=== PATIENT | female | born 1945 | race Caucasian/White ===

== ENCOUNTER 2018-01-17 02:25 | Emergency (ER) | payer OTHER ==
[~2018-01-17] VITALS: Ht 157.5 cm; Wt 75.2 kg
[2018-01-17] VITALS (7 sets, daily range): BP systolic 93–136; BP diastolic 50–75; PULSE 65–78; RESP 16–17; TEMP 98.6; O2SAT 96–99
[2018-01-17] MEDS ORDERED: ANTIDEPRESSANT PO (02:42)
[2018-01-17] MEDS ORDERED: LEVO50TA4 PO (02:42)
[2018-01-17] MEDS ORDERED: CHOLESTEROL MED PO (02:42)
[2018-01-17] MEDS ORDERED: ASCO100029 PO (02:45)
[2018-01-17] MEDS ORDERED: VITA400C28 PO (02:45)
[2018-01-17] MEDS ORDERED: ASPI1TAB57 PO (02:45)
[2018-01-17] MEDS ORDERED: CYAN100 PO (02:45)
[2018-01-17] MEDS ORDERED: OMEG100010 PO (02:45)
--- NOTE | 2018-01-17 03:24 | PD ---
HPI Chief Complaint: Alcohol/Drug Intoxication Time Seen by Provider: 03:04 Travel History International Travel<30 days: No Contact w/Intl Traveler<30days: No Traveled to known affect area: No History of Present Illness HPI This is a 72-year-old female who drank multiple beers and had 3 margaritas to celebrate Mother's Day today when she started to tell her family she had chest discomfort and she slumped over to the side and went unconscious. Her family member pulled her to the floor and started doing CPR. The patient awoke. The patient does not remember any of this. She denies any chest pain currently but says she feels intoxicated. She has a history of hyperlipidemia but no diabetes , hypertension or prior heart disease. She does smoke. [facility] Past Medical History ?: Not Social History Alcohol Use: Yes Tobacco Use: Yes Substance Use: No Allergies-Medications (Allergen,Severity, Reaction): Coded Allergies: No Known Allergies (Unverified , 01/17/18) Reported Meds & Prescriptions Reported Meds & Active Scripts Active Reported North English 3 1000 mg (North English-3 Fatty Acids) 300 Mg-1,000 Mg Cap 300 Mg PO DAILY Vitamin B12 (Cyanocobalamin) 100 Mcg Tab 100 Mcg PO DAILY Vitamin C (Ascorbic Acid) 1,000 Mg Tablet.er 1,000 Mg PO DAILY Vitamin D (Cholecalciferol) 400 Unit Cap 400 Cap PO DAILY Aspirin 81 (Aspirin) 81 Mg Tabdr 81 Mg PO DAILY [Antidepressant] 1 Tab PO DAILY Levothyroxine (Levothyroxine Sodium) 50 Mcg Tab 50 Mcg PO DAILY [Cholesterol Med] 1 Tab PO HS Review of Systems Except as stated in HPI: all other systems reviewed are Neg Physical Exam Narrative GENERAL:Well appearing, no acute distress SKIN: Focused skin assessment warm and dry. HEAD: Atraumatic. Normocephalic. EYES: Pupils equal and round. No injection or drainage. ENT: Moist mucous membranes NECK: Trachea midline. CARDIOVASCULAR: Regular rate and rhythm. No murmur appreciated. RESPIRATORY: Clear to auscultation. Breath sounds equal bilaterally. GASTROINTESTINAL: Abdomen soft, non-tender, nondistended. MUSCULOSKELETAL: No obvious deformities. NEUROLOGICAL: Awake and alert. No obvious cranial nerve deficits. Slurred speech, poor coordination. PSYCHIATRIC: Appropriate mood and affect; insight and judgment normal. Data Data Last Documented VS Vital Signs Date Time Temp Pulse Resp B/P (MAP) Pulse Ox O2 Delivery O2 Flow Rate FiO2 01/17/18 04:40 78 16 103/68 (80) 99 Room Air 01/17/18 02:30 98.6 Orders Orders Complete Blood Count With Diff (01/17/18 03:10) Comprehensive Metabolic Panel (01/17/18 03:10) Troponin I (01/17/18 03:10) Electrocardiogram (01/17/18 ) Troponin I (01/17/18 06:07) Labs Laboratory Tests Test 01/17/18 02:30 White Blood Count 11.4 TH/MM3 Red Blood Count 5.00 MIL/MM3 Hemoglobin 14.2 GM/DL Hematocrit 43.7 % Mean Corpuscular Volume 87.4 FL Mean Corpuscular Hemoglobin 28.5 PG Mean Corpuscular Hemoglobin Concent 32.6 % Red Cell Distribution Width 12.9 % Platelet Count 147 TH/MM3 Mean Platelet Volume 10.2 FL Neutrophils (%) (Auto) 53.3 % Lymphocytes (%) (Auto) 37.6 % Monocytes (%) (Auto) 4.3 % Eosinophils (%) (Auto) 1.6 % Basophils (%) (Auto) 3.2 % Neutrophils # (Auto) 6.0 TH/MM3 Lymphocytes # (Auto) 4.3 TH/MM3 Monocytes # (Auto) 0.5 TH/MM3 Eosinophils # (Auto) 0.2 TH/MM3 Basophils # (Auto) 0.4 TH/MM3 CBC Comment AUTO DIFF Differential Comment AUTO DIFF CONFIRMED Platelet Estimate LOW Platelet Morphology Comment ENLARGED Blood Urea Nitrogen 4 MG/DL Creatinine 0.71 MG/DL Random Glucose 94 MG/DL Total Protein 7.7 GM/DL Albumin 3.6 GM/DL Calcium Level 8.5 MG/DL Alkaline Phosphatase 107 U/L Aspartate Amino Transf (AST/SGOT) 24 U/L Alanine Aminotransferase (ALT/SGPT) 28 U/L Total Bilirubin 0.2 MG/DL Sodium Level 138 MEQ/L Potassium Level 3.4 MEQ/L Chloride Level 107 MEQ/L Carbon Dioxide Level 21.9 MEQ/L Anion Gap 9 MEQ/L Estimat Glomerular Filtration Rate 81 ML/MIN Troponin I LESS THAN 0.02 NG/ML MDM Medical Decision Making Medical Screen Exam Complete: Yes Emergency Medical Condition: Yes Interpretation(s) EKG: Normal sinus rhythm, no ST changes Mild leukocytosis Troponin negative Differential Diagnosis Acute alcohol intoxication, gastritis, pancreatitis, myocardial infarction Narrative Course This is a 72-year-old female who presents to the emergency department having unresponsive per her family and reporting some chest pain. Patient is markedly intoxicated on exam and acknowledges drinking multiple margaritas and multiple beers earlier today. I suspect this is all secondary to acute alcohol intoxication. EKG was obtained as a precaution which was nonischemic and 2 sets of troponins are negative. I think patient can be discharged home when she is clinically sober with her family. Diagnosis Primary Impression: Acute alcohol intoxication Qualified Codes: F10.929 - Alcohol use, unspecified with intoxication, unspecified Patient Instructions: General Instructions Additional Instructions: If you develop severe chest pain, shortness of breath, sweating, lightheadedness , dizziness or difficulty breathing return to the emergency department immediately. Followup with your primary care physician in 2-3 days if your symptoms are not resolved. Med/Other Pt SpecificInfo: No Change to Meds Disposition: 01 DISCHARGE HOME Condition: Stable Anne-Marie Barragan MD January 17, 2018 03:24
[2018-01-17 03:31] LABS: BASOPHIL # 0.4 TH/MM3 (0-0.2); BASOPHIL % 3.2 % (0.0-2.0); EOSINOPHIL # 0.2 TH/MM3 (0-0.4); EOSINOPHIL % 1.6 % (0.0-4.0); HEMATOCRIT 43.7 % (35.0-46.0); HEMOGLOBIN 14.2 GM/DL (11.6-15.3); LYMPH % 37.6 % (9.0-44.0); LYMPHOCYTE # 4.3 TH/MM3 (1.0-4.8); MEAN CELL VOLUME 87.4 FL (80.0-100.0); MEAN CORPUSCULAR HEMOGLOBIN 28.5 PG (27.0-34.0); MEAN CORPUSCULAR HGB CONC 32.6 % (32.0-36.0); MEAN PLATELET VOLUME 10.2 FL (7.0-11.0); MONO % 4.3 % (0.0-8.0); MONOCYTE # 0.5 TH/MM3 (0-0.9); NEUT % 53.3 % (16.0-70.0); PLATELET COUNT 147 TH/MM3 (150-450); RED CELL DISTRIBUTION WIDTH 12.9 % (11.6-17.2); WHITE BLOOD COUNT 11.4 TH/MM3 (4.0-11.0)
[2018-01-17 03:47] LABS: CHLORIDE 107 MEQ/L (98-107); SODIUM (NA) 138 MEQ/L (136-145)
[2018-01-17 03:50] LABS: CALCIUM 8.5 MG/DL (8.5-10.1)
[2018-01-17 03:51] LABS: ALBUMIN 3.6 GM/DL (3.4-5.0); BICARBONATE 21.9 MEQ/L (21.0-32.0); BLOOD UREA NITROGEN 4 MG/DL (7-18); GLUCOSE,RANDOM 94 MG/DL (74-106)
[2018-01-17 03:54] LABS: ALT (GPT) 28 U/L (10-53); AST (GOT) 24 U/L (15-37); CREATININE 0.71 MG/DL (0.50-1.00); GLOMERULAR FILTRATION RATE 81 ML/MIN (>89)
[2018-01-17 03:55] LABS: TOTAL BILIRUBIN ADULT 0.2 MG/DL (0.2-1.0)
[2018-01-17 03:56] LABS: TOTAL PROTEIN 7.7 GM/DL (6.4-8.2)
[2018-01-17 03:57] LABS: ALKALINE PHOSPHATASE 107 U/L (45-117)
[2018-01-17 03:59] LABS: TROPONIN I LESS THAN 0.02 NG/ML (0.02-0.05)
--- NOTE | 2018-01-17 17:09 | EKG ---
Date Performed: 01/17/2018 Time Performed: 03:44:05 PTAGE: 72 years EKG: Sinus rhythm NORMAL ECG NO PREVIOUS TRACING DOCTOR: Anastacio Sapp Interpretating Date/Time 01/17/2018 17:08:21
== END 2018-01-17 12:03 | disposition home or self-care (01) ==
LOC: PHED 02:25
DX: F10.129 Alcohol abuse with intoxication, unspecified (principal); E78.5 Hyperlipidemia, unspecified; Z72.0 Tobacco use
CPT/HCPCS: 80053; 84484; 85025; 93005; 99284